=== PATIENT | male | born 1930 | race Caucasian/White ===

== ENCOUNTER 2016-07-14 15:24 | Emergency (ER) | payer MEDICARE, BC ==
[~2016-07-14 15:24] MED LIST: ACET500CAP PO; ALEVE220 MG PO; ARICEPT5 PO; ASAB PO; C25 PO; C5 PO; CITRACEL; CITRUCELSF PO; CORDARONE PO; COZ25 PO; DSS PO; FAMOTIDINE PO/LIQ; FISH OIL1200 MG PO; FISH-EPA1000 MG PO; GAVISCON6 PO; HALCION0.25 MG PO; HALF81 PO; IMOD PO; KLOR-CON M2020 MEQ PO; L20 PO; LEVSINTAB PO; LIPITOR20 PO; LOP25 PO; MEVACOR PO; MIRALAXPKT PO; NITROSTAT0.4 MG SL; NORCO1 TA1 PO; NTG150 SL; PEPCID40 MG OR; T PO; TOPXL25 PO; TRAZ50 PO; ULTRAM50 PO; ZANTAC 150 PO; ZANTAC150 MG PO
[2016-07-14 16:37] LABS: BASOPHILS 0.4 %; BASOPHILS ABSOLUTE 0.03 10/3/uL (0.0-0.16); EOSINOPHILS 1.9 %; EOSINOPHILS ABSOLUTE 0.14 10/3/uL (0.0-0.53); ER CBC TAT 0 Hrs 09 Mins; HEMATOCRIT 44.9 % (40.0-51.0); HEMOGLOBIN 15.3 g/dL (13.6-17.8); IMMATURE GRANULOCYTES 0.4 %; IMMATURE GRANULOCYTES ABSOLUTE 0.03 10/3/uL (0.0-0.11); LYMPHOCYTES 10.9 %; MEAN CORPUS HGB CONC 34.1 g/dL (32.0-36.0); MEAN CORPUSCULAR HEMOGLOB 32.3 pg (26.0-34.0); MEAN PLATELET VOLUME 9.5 fL (9.2-13.0); MONOCYTES ABSOLUTE 0.51 10/3/uL (0.21-1.20); NEUTROPHILS 79.4 %; NEUTROPHILS ABSOLUTE 5.81 10/3/uL (2.02-8.40); PLATELET COUNT 184 10/3/uL (150-400); RBC DISTRIBUTION WIDTH 13.7 % (12.0-16.0); RED CELL COUNT 4.73 10/6/uL (4.7-6.1); WHITE BLOOD CELLS 7.3 10/3/uL (4.5-10.5)
[2016-07-14 16:39] LABS: MANUAL DIFF NO %; MEAN CORPUSCULAR VOLUME 94.9 fL (80-100)
[2016-07-14 16:55] LABS: A/G RATIO 0.8 (0.7-1.9); ALBUMIN 3.2 G/DL (3.5-5.0); ALKALINE PHOSPHATASE 93 U/L (45-117); BUN (BLOOD UREA NITROGEN) 26 MG/DL (6-23); CALCIUM, SERUM 8.4 MG/DL (8.5-10.4); CHLORIDE, SERUM 102 MMOL/L (96-112); CO2 (CARBON DIOXIDE) 27 MMOL/L (24-34); CREATININE 1.58 MG/DL (0.70-1.30); GFR AFRICAN AMERICAN 45 ML/MIN (>=60); GFR NON AFRICAN AMERICAN 39 ML/MIN (>=60); GLOBULIN 3.9 G/DL (2.5-4.1); POTASSIUM, SERUM 4.8 MMOL/L (3.5-5.3); SODIUM, SERUM 137 MMOL/L (135-148); TOTAL BILIRUBIN 0.4 MG/DL (0-1.2); TOTAL PROTEIN 7.1 G/DL (6.0-8.5)
[2016-07-14 16:56] LABS: TROPONIN I 0.06 NG/ML (<0.05)
[2016-07-14 16:57] LABS: GLUCOSE, SERUM 121 MG/DL (60-99); SGOT(AST) 28 U/L (5-40); SGPT(ALT) 43 U/L (5-65)
[2016-07-14 17:08] LABS: INTERNATIONAL NORMAL RATI 1.7 UNITS (-); PARTIAL THROMBO TIME 27.2 SEC (22.5-37.2)
[2016-07-14 17:58] LABS: ASCORBIC ACID (UR NOT ORDER) NEG (NEG); BILIRUBIN, URINE NEGATIVE (NEG); ER URINALYSIS TAT 0 Hrs 16 Mins; KETONE, URINE NEGATIVE (NEG); LEUKOCYTE ESTERASE(NOT OR NEG (NEG); NITRITE (URINE) NEG (NEG); WBC (NOT ORDERED) (RFLEX) 1 (0-5)
[2016-12-30] MEDS ORDERED: TRAZ50 PO (23:40)
[2016-12-30] MEDS ORDERED: SYN.05 PO (23:44)
[2016-12-30] MEDS ORDERED: TYLENOL PM PO (23:45)
[2016-12-30] MEDS ORDERED: ZANTAC 150 PO (23:45)
[2016-12-30] MEDS ORDERED: PACERONE100 MG PO (23:46)
[2016-12-30] MEDS ORDERED: L20 PO (23:46)
[2016-12-30] MEDS ORDERED: KDUR10 PO (23:46)
[2016-12-30] MEDS ORDERED: C25 PO (23:47)
[2016-12-30] MEDS ORDERED: ASAB PO (23:47)
[2016-12-30] MEDS ORDERED: ACET500CAP PO (23:47)
[2016-12-30] MEDS ORDERED: FISH-EPA1000 MG PO (23:48)
[2016-12-30] MEDS ORDERED: METAMUCIL PO (23:48)
[2016-12-31] MEDS ORDERED: METAMUCIL CAN7 OZ PO (09:31)
[2016-12-31] MEDS ORDERED: MIRALAX POWDER1 PKT PO (09:32)
[2016-12-31] MEDS ORDERED: FISH OIL1200 MG PO (09:32)
[2017-01-02] MEDS ORDERED: K500 PO (10:40)
== END 2016-07-14 18:18 | disposition home or self-care (01) ==
LOC: ER 15:24
PROVIDERS: Emergency Medicine
DX: R55 Syncope and collapse (principal); R19.7 Diarrhea, unspecified; I12.9 Hypertensive chronic kidney disease with stage 1 through stage 4 chronic kidney disease, or unspecified chronic kidney disease; N18.9 Chronic kidney disease, unspecified; F41.9 Anxiety disorder, unspecified; F03.90 Unspecified dementia, unspecified severity, without behavioral disturbance, psychotic disturbance, mood disturbance, and anxiety; I50.9 Heart failure, unspecified; Z88.8 Allergy status to other drugs, medicaments and biological substances; Z79.899 Other long term (current) drug therapy; Z79.82 Long term (current) use of aspirin
CPT/HCPCS: 70450; 71010; 80053; 81001; 83735; 83880; 84484; 85025; 85610; 85730; 93005; 99285; J2405